=== PATIENT | female | born 1975 | race Caucasian/White ===

== ENCOUNTER 2023-12-30 21:40 | Emergency (ER) | payer MEDICAID ==
[~2023-12-30] VITALS: Ht 152.4 cm; Wt 90.7 kg
[2023-12-30 22:05] VITALS: BP_SYST 137; PULSE 66; RESP 16; TEMP 98.1; O2SAT 98
[2023-12-30 22:47] LABS: BASOPHILS % (AUTO) 0.4 % (0.0-2.0); EOSINOPHILS # (AUTO) 0.2 K/uL (0.0-0.4); EOSINOPHILS % (AUTO) 3.2 % (0.0-4.0); HEMATOCRIT 27.1 % (36-48); HEMOGLOBIN 9.2 g/dL (12.0-16.0); LYMPHOCYTES # (AUTO) 2.6 K/uL (1.0-5.5); LYMPHOCYTES % (AUTO) 39.6 % (20.5-51.5); MEAN CORPUSCULAR HEMOGLOBIN 28 pg (27-31); MEAN CORPUSCULAR HGB CONC 34 % (32-36); MEAN CORPUSCULAR VOLUME 81 fL (79.0-98.0); MONOCYTES # (AUTO) 0.4 K/uL (0.0-1.0); NEUTROPHILS # (AUTO) 3.4 K/uL (1.8-7.7); NEUTROPHILS % (AUTO) 50.8 % (40.0-70.0); PLATELET COUNT (AUTO) 268 K/uL (130-430); RED BLOOD CELL COUNT(AUTO) 3.34 MIL/uL (4.2-6.2); RED CELL DISTRIBUTION WIDTH 14.8 % (9.0-15.0); WHITE BLOOD COUNT (AUTO) 6.6 K/uL (4.8-10.8)
[2023-12-30 23:00] LABS: ALBUMIN 3.2 g/dL (3.4-4.8); BILIRUBIN,DIRECT 0.1 mg/dL (0.0-0.3); CALCIUM 8.6 mg/dL (8.4-11.0); CREATININE 0.88 mg/dL (0.55-1.30); POTASSIUM 3.6 mmol/L (3.5-5.1); TOTAL BILIRUBIN 0.4 mg/dL (0.0-1.0); TOTAL PROTEIN, SERUM 7.1 g/dL (6.4-8.3)
[2023-12-30 23:47] LABS: BILIRUBIN,URINE NEGATIVE (NEGATIVE); BLOOD, URINE 3+ (NEGATIVE); COLOR,URINE YELLOW (YELLOW); GLUCOSE,URINE NEGATIVE (NEGATIVE); KETONES,URINE NEGATIVE (NEGATIVE); LEUKOCYTE ESTERASE ,URINE 2+ (NEGATIVE); NITRITE, URINE NEGATIVE (NEGATIVE); PROTEIN URINE NEGATIVE (NEGATIVE)
[2023-12-31 00:09] LABS: CLARITY/URINE SLIGHTLY CLOUDY (CLEAR)
[2023-12-31 00:10] LABS: BACTERIA,URINE MODERATE /HPF (None Seen); WBC,URINE 20-50 /HPF (0-3)
[2023-12-31] MEDS: MORPHINE 4 MG INJ. 4 MG/ML VIAL IVP ONE (00:35)
[2023-12-31] MEDS: PANTOPRAZOLE SODIUM 40 MG/VIAL (PROTONIX) IVP ONE (00:35)
[2023-12-31] MEDS: ONDANSETRON HCL 4 MG/2 ML VIAL IVP ONE (00:35)
[2023-12-31] MEDS: cefTRIAXone 1 GM IVPB PREMIX 50 ML IV ONE (01:09)
[2023-12-31] MEDS ORDERED: PHEN-622 PO (02:04)
[2023-12-31] MEDS ORDERED: CEPH250C PO (02:04)
[2023-12-31 02:20] VITALS: BP_SYST 139; PULSE 63; RESP 20; TEMP 98; O2SAT 98
== END 2023-12-31 02:20 | disposition home or self-care (01) ==
LOC: SED 21:40
DX: K42.9 Umbilical hernia without obstruction or gangrene (principal); R10.84 Generalized abdominal pain; R11.0 Nausea
CPT/HCPCS: 80076; 80048; 81000; 81015; 81001; 83690; 85025; 87086; 36415; 99285; 81025; 74176; 96365; 96375; J0696; J2405; J2470; J2270